=== PATIENT | male | born 1950 ===

== ENCOUNTER → 2021-10-23 08:16 | Outpatient (BNVA) | payer OTHER, SELFPAY | PROVIDERS: PCP Nurse Practitioner Primary Care; Referring Provider Nurse Practitioner Primary Care; Visit Provider Internal Medicine | DX: I10 Essential (primary) hypertension (principal) | CPT/HCPCS: 93005; 99212 ==

== ENCOUNTER → 2022-01-06 10:12 | Outpatient (REF) | payer OTHER, SELFPAY ==
--- NOTE | 2022-01-06 10:16 | CA_ITS ---
Transthoracic Echocardiogram Patient (Last, First, Middle): Favio Choe, Gender: Male Date of : 1950 Age: 71 Procedure Date: 01/06/2022 Procedure Type: Transthoracic Echocardiogram Location: OP Height: 162.56 cm Weight: 81.65 kg BSA: 1.87 m2 Heart Rate: bpm BP: 136 / 82 mmHg Java Development Manager: YOLA Referring MD: Abdi Platt MD Shank Cementer Hand: Marc Ramirez MD Symptoms: I10 - Essential (primary) hypertension Study Quality: Fair ECG Rhythm: Sinus Conclusions: - 1. Normal LV systolic function with impaired relaxation filling pattern 2. Normal cardiac valvular Doppler 3. No gross pericardial effusion Findings Left Ventricle Normal left ventricular size, thickness, and systolic function. The visually estimated ejection fraction is between 55-60%. Spectral Doppler is indicative of an impaired relaxation filling pattern. Right Ventricle Normal right ventricular cavity size and systolic function. Atria The left atrium is likely dilated. Interatrial shunt cannot be excluded. The right atrium is normal in size. Aortic Valve The aortic valve structure and function is likely normal. There is no aortic valve stenosis. There is no aortic valve regurgitation. Mitral Valve Normal mitral valve structure and function. There is trace mitral valve regurgitation. There is no mitral valve stenosis. Pulmonic Valve The pulmonic valve was not well visualized. Tricuspid Valve Likely normal tricuspid valve structure and function. Tricuspid regurgitation envelope is inadequate for calculation of right ventricular systolic pressure. Great Vessels All visible segments of the aorta are normal in size. The pulmonary artery was not well visualized. Venous The inferior vena cava is normal in size and collapses greater than 50% with inspiration. Pericardium/Pleural There is no evidence of pericardial effusion. Prior Study Comparison No prior study available for comparison. Measurements 2D Linear Measurements IVSd: 0.99 0.6-0.9/0.6-1.0 cm LVIDd: 4.76 3.9-5.3/4.2-5.9 cm LVIDd Index: 2.55 2.4-3.2/2.2-3.1 cm/m2 LVIDs: 2.92 2.0-3.6 cm LVPWd: 0.94 0.7-1.1 cm LA Diam: 3.90 2.7-3.8/3.0-4.0 cm LAIDs Index: 2.09 1.5-2.3 cm/m2 LV Mass: 199.37 67-162/88-224 g LV Mass Index: 106.62 43-95/49-115 g/m2 LVOT Diam: 2.00 3.0+(-)1.3 cm 2D Systolic Function EF 4C: 56.90 >55% EF 2C: 57.30 >55% EF BiP: 56.20 >55% Mitral Valve MV Pk E: 0.70 MV PK A: 0.88 MV Decel Time: 210.00 E/A: 0.80 E'Lateral: 10.40 E'Medial: 7.72 E/E' Med: 9.10 E/E' Lat: 6.80 PHT: 61.00 MVA PHT: 3.61 Decel Barrow: 3.36 Aortic Valve AoV Pk Renzo: 1.60 AoV Mn Renzo: 1.04 AoV VTI: 0.32 AoV Pk Grad: 10.00 Aov Mn Grad: 5.00 JESSE Cont.VTI: 2.20 LVOT LVOT Pk Renzo: 1.15 LVOT Mn Renzo: 0.72 LVOT VTI: 0.22 LVOT Pk Grad: 5.00 LVOT Mn Grad: 2.00 LVOT Diam: 2.00 LVOT Area: 3.14 Diastolic Function MV Pk E: 0.70 MV Pk A: 0.88 E/A: 0.80 E'Medial: 7.72 E/E' Med: 9.10 E' Laterial: 10.40 E/E' Lat: 6.80 Right Ventricle TAPSE (mm): 24.30 TVS' Renzo: 13.30 Tricuspid Valve RA Press: 3.00 Great Vessels Aorta Sinus of Valsalva: 3.15 2.0-3.[address] Ridge: 2.66 1.7-3.4 cm Ao Asc: 3.20 2.1-3.4 cm Ao Arch: 2.90 Updated in Other Vendor System with Status of Final Marc Ramirez MD electronically signed on 01/07/2022 5:24:23 PM with status of Final
== END ==
LOC: HO.CARD 10:12
PROVIDERS: PCP Nurse Practitioner Primary Care; Visit Provider Internal Medicine
DX: I10 Essential (primary) hypertension (principal)
CPT/HCPCS: 93306

== ENCOUNTER 2022-01-09 07:56 | Outpatient (REF) | payer OTHER, SELFPAY ==
--- NOTE | ~2022-01-09 | US_ITS ---
EXAMINATION: US RETROPERITONEAL LIMITED (RENAL ONLY) The renal Doppler exam report from the same day .
--- NOTE | ~2022-01-09 | US_ITS ---
EXAMINATION: US RENAL WITH DOPPLER, BILATERAL CLINICAL INFORMATION: Hypertension. COMPARISON: Previous abdominal ultrasound August 2018 . TECHNIQUE: Grayscale and color imaging of the kidneys including waveform spectral analysis of the renal arteries. FINDINGS: The kidneys are normal in contour and symmetric in size with the right kidney measuring 12 x 5.8 x 6.8 cm and the left kidney measuring 12.3 x 6.6 x 5.8 cm. Renal cortical thickness and echogenicity is normal. No renal stone, mass or hydronephrosis is seen. There is a 1.2 cm simple cyst exophytic to the lateral mid pole. The visualized aorta is normal in caliber. Mid-aortic peak systolic velocity measures 90 cm/s. The right renal artery is patent. Renal artery peak systolic velocities measure 93, 79 and 98 cm/s proximally, in the midportion and distally. Right renal bbjjro-bv-vxicb ratio measures 1.1. Resistive indices of the segmental renal arteries is upper normal measuring 0.7-0.8. The left renal artery is patent. Left renal artery peak systolic velocities measure 168, 83 and 105 cm/s proximally, in the midportion and distally. Left renal krhbtb-as-wdjqj ratio is normal measuring 0.9. Resistive indices of the segmental renal arteries in the left kidney are upper normal measuring 0.7-0.8. The bilateral renal veins are patent. US/US renal doppler IMPRESSION: Small left renal cyst. Otherwise normal renal ultrasound. Normal renal Doppler exam.
== END 2022-01-09 07:57 | disposition home or self-care (01) ==
LOC: HO.US 07:56
PROVIDERS: Visit Provider Internal Medicine
DX: I70.1 Atherosclerosis of renal artery (principal); I10 Essential (primary) hypertension
CPT/HCPCS: 76775; 93975

== ENCOUNTER → 2022-01-13 08:04 | Outpatient (BNVA) | payer OTHER, SELFPAY | PROVIDERS: PCP Nurse Practitioner Primary Care; Referring Provider Nurse Practitioner Primary Care; Visit Provider Internal Medicine | DX: I10 Essential (primary) hypertension (principal) | CPT/HCPCS: 99212 ==

== ENCOUNTER 2023-08-11 08:43 | Outpatient (AMB) | payer OTHER, SELFPAY ==
--- NOTE | 2023-08-11 08:45 | A.OFFPC_ITS ---
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 Request PE Microbiology Soil Scientist Required: No Accompanied by: Self / Same As Patient Allergies No Known Allergies [No Known Allergies*] Allergy (Verified 08/11/23 09:00) Medication List - Last Reconciled 08/11/23 by Nano Last MD aspirin 81 mg PO QPM atorvastatin 40 mg PO BEDTIME B-complex with vitamin C 1 tab PO QAM carvedilol 25 mg PO BID dulaglutide (Trulicity) mg subcut QWEEK hydrochlorothiazide 25 mg PO QAM lisinopril 40 mg PO QAM metformin ER 500 mg PO cxrwdxtjqbqj-bccg-oigfk acid 18-400 mg-mcg (Certavite-Antioxidant) 1 tab PO QAM nifedipine ER 30 mg PO QPM pioglitazone 15 mg PO QAM trazodone 50 mg PO BEDTIME vit B1 [id number]-C-FA 66-95-26-5-250 mg (B Complex w-Vit C) 1 tab PO QAM Tobacco use date assessed: 08/11/23 Fall risk assessment: No Falls in past year Last assessed Fall Risk: 08/11/23 Dental Screening Dental Screen Date: 08/11/23 Did you have a dental visit in the last 12 months?: No Did you have a dental problem in the last 6 months where you did not have access to dental care?: No HPI HPI Comments History of Present Illness Details This is a 72-year-old male with diabetes mellitus type 2, hypertension, hyperlipidemia and macrocytic anemia that comes today to establish care. Last colonoscopy was 2018 showing hyperplastic polyp and next colonoscopy should be 2028. A1c within goal. Blood pressure stable. Lipid panel will be order and his LDL goal should be less than 70. Has microcytic anemia and CBC will be repeated as well as vitamin B12 and folate levels will be checked. He drinks alcohol few times a week 3-4 beers every time he drinks and was advised to cut down on his drinking. He has been drinking alcohol since he has 18 years old and used to drink a lot more. He is a former smoker and ultrasound of the abdomen will be ordered to rule out abdominal aortic aneurysm. [facility] Medical History (Updated 08/11/23 @ 09:14 by Nano Last MD) Uncontrolled hypertension Surgical History No pertinent past surgical history Family History Father Hypertension Mother Hypertension Social History (Updated 08/11/23 @ 09:06 by Nano Last MD) Alcohol intake: current Alcohol intake frequency: a few times a week Alcohol type: beer Patient Tobacco Use Status: Former Tobacco user Tobacco use type: Cigarette Substance Use Type: Marijuana Cognitive needs: No Hearing needs: No Vision needs: No Questionnaire PHQ-9 Over the last 2 weeks, how often have you been bothered by any of the following problems? 1. Little interest or pleasure in doing things: not at all 2. Feeling down, depressed, or hopeless: not at all 3. Trouble falling or staying asleep, or sleeping too much: not at all 4. Feeling tired or having little energy: not at all 5. Poor appetite or overeating: not at all 6. Feeling bad about yourself - or that you are a failure or have let yourself or your family down: not at all 7. Trouble concentrating on things, such as reading the newspaper or watching television: not at all 8. Moving or speaking so slowly that other people could have noticed. Or the opposite - being so fidgety or restless that you have been moving around a lot more than usual: not at all 9. Thoughts that you would be better off or of hurting yourself in some way: not at all Total score: 0 Depression Screening Interpretation: Negative Depression Screening Done: Yes 22252 - PHQ-9 Billing: Yes Source: Developed by Drs. Corey Hdez, Janet Burnham, Domo Smith and colleagues, with an educational richard from [employer]. AUDIT C Alcohol Use Questionnaire (AUDIT-C) 1. How often do you have a drink containing alcohol?: 2-3 times a week 2. How many drinks containing alcohol do you have on a typical day when you are drinking?: 3 or 4 3. How often do you have six or more drinks on one occasion?: Never Total Score: 4 Score Reviewed/Action Taken: Yes LUISA-7 AMB Questionnaire LUISA-7 Date LUISA - 7 assessed: 08/11/23 Feeling nervous, anxious, or on edge: 0 = Not at all Not being able to stop or control worryin = Not at all Worrying too much about different things: 0 = Not at all Trouble relaxin = Not at all Being so restless that it is hard to sit still: 0 = Not at all Becoming easily annoyed or irritable: 0 = Not at all Feeling afraid as if something awful might happen: 0 = Not at all Total LUISA-7 score (0-4 normal; 5-9 mild; 10-14 moderate; 15-21 severe): 0 Source: Developed by Drs. Corey dHez, Janet Burnham, Domo Smith and colleagues, with an educational richard from [employer]. LUISA-7 Assessment Billing LUISA-7 Assessment Tool: LUISA-7 Assessment 54851 Review of Systems Const All systems reviewed & are unremarkable except as noted in HPI and below Eyes Reports no additional complaints, Denies change in vision and Denies other visual disturbances Card Denies chest pain at rest, Denies chest pain with activity, Denies edema, Denies irregular heart rhythm, Denies claudication, Denies dyspnea, Denies dyspnea on exertion, Denies orthopnea, Denies paroxysmal nocturnal dyspnea and Denies slow heart rate Resp Denies cough, Denies dyspnea and Denies dyspnea on exertion GI Denies abdominal pain, Denies change in bowel habits, Denies excessive flatus, Denies nausea and Denies vomiting Denies urinary hesitancy, Denies urinary incontinence and Denies urinary urgency Musc Denies abnormal gait, Denies atrophy, Denies deformity and Denies limited range of motion Skin/Breast Denies bleeding lesions, Denies changing lesions and Denies rash Neuro Denies abnormal gait, Denies behavioral changes and Denies lack of coordination Psych Denies behavioral changes Physical exam (Primary Care) Vital Signs: Last Vital Signs Pulse 78 08/11/23 08:46 BP 142/78 H 08/11/23 08:46 Pulse Ox 99 08/11/23 08:46 Oxygen Delivery Method Room Air 08/11/23 08:46 BMI result Body Mass Index 30.0 Tobacco/Smoking Status: Tobacco use Status Tobacco use date assessed 08/11/23 08/11/23 08:55 Patient Tobacco Use Status Former Tobacco user 08/11/23 09:06 Tobacco use type Cigarette 08/11/23 09:06 PHQ-9: PHQ-9 Score PHQ-9: Total score 0 08/11/23 09:07 Depression Screening Interpretation: Negative Eyes General: appearance normal, both eyes and all related structures Eyelids: Yes eyelids normal Conjunctivae: conjunctivae normal Neck Neck: Yes normal visual inspection and Yes supple Resp Effort & Inspection: normal respiratory effort Auscultation: clear to auscultation bilaterally Cardio Jugular venous distension: no JVD Rate: regular rate Rhythm: regular rhythm Heart sounds: S1 normal heart sound present and S2 normal heart sound present Extrem General: Yes full ROM Office Procedures Flu Questionnaire Does the patient have a severe egg allergy?: No Does the patient have severe life threatening allergies?: No Does the patient have a fever or illness today?: No Has the patient ever had Guillain-[place] Syndrome?: No Has the patient ever had any past reaction to a flu shot?: No Results AMB Hemoglobin A1c AMB Hemoglobin A1c 5.7 % Last Edit by PENELOPE Clemens on 08/11/23 08:57 Immunizations flu vacc [id number] 6mos up(PF) 60 mcg(15 mcgx4)/0.5 mL IM syringe Performing Provider: Nano Last MD Performing Location: [facility] Administered by: PENELOPE Clemens on 08/11/23 09:10 Dose Route Admin Location Dispensed Lot Number Expiration Date NDC Squirrel Man 0.5 mL IM Left Deltoid 0.5 mL [id number] 04/02/25 [id number] [employer] VIS Given Date VIS Provided VIS Publication Date 08/11/23 Single Vaccine 21 Eligibility Eligibility Date Funding Source Not [facility] Eligible 08/11/23 Private Results Reviewed Results Reviewed: Laboratory Last Values Hgb A1c (Clinic) 5.7 % (4.0-6.0) 08/11/23 08:46 Assessment and Plan Assessment & Plan (1) Diabetes mellitus: Code(s): E11.9 - Type 2 diabetes mellitus without complications Plan: Continue metformin and Trulicity. A1c goal is equal or less than 7%. Continue Actos. (2) Essential hypertension: Code(s): I10 - Essential (primary) hypertension Plan: Continue lisinopril and carvedilol. Blood pressure goal is equal or less than 130/80. (3) Hyperlipidemia LDL goal <70: Code(s): E78.5 - Hyperlipidemia, unspecified Plan: Continue statins. Repeat lipid panel. LDL goal is less than 70. (4) Macrocytic anemia: Code(s): D53.9 - Nutritional anemia, unspecified Plan: Repeat CBC. Orders: Orders Microalbumin, Random (w Creat) Today E11.9 - Type 2 diabetes mellitus without complications IRON PROFILE Today D64.9 - Anemia, unspecified AMB Hemoglobin A1c Today Z13.9 - Encounter for screening, unspecified Influenza [id number] Immunization Today Z23 - Encounter for immunization Lipid Panel Today E78.5 - Hyperlipidemia, unspecified Complete Blood Count Auto Diff Today D64.9 - Anemia, unspecified Vitamin B12 and Folate Today E53.8 - Deficiency of other specified B group vitamins Comprehensive [place]. Panel Fast Today E11.9 - Type 2 diabetes mellitus without complications abdominal aortic aneurysm Today Z87.891 - Personal history of nicotine dependence Coding Level of Care Code New Pt Level 4 (29945) Diagnoses Diabetes mellitus E11.9 Essential hypertension I10 Hyperlipidemia LDL goal <70 E78.5 Macrocytic anemia D53.9 Additional Codes LUISA-7 Assessment Billing - LUISA-7 Assessment Tool: LUISA-7 Assessment 69301 ([id number]) Time Spent (min) 24
[2023-08-11 08:46] VITALS: BP 142/78; PULSE 78; O2SAT 99
== END 2023-08-11 09:17 | disposition home or self-care (01) ==
PROVIDERS: PCP Internal Medicine; Visit Provider Internal Medicine
DX: E11.9 Type 2 diabetes mellitus without complications (principal); I10 Essential (primary) hypertension; E78.5 Hyperlipidemia, unspecified; D53.9 Nutritional anemia, unspecified; Z23 Encounter for immunization
CPT/HCPCS: 83036; 90471; 90686; 99204

== ENCOUNTER 2023-08-11 09:33 | Outpatient (REF) | payer OTHER, SELFPAY ==
[2023-08-11 10:19] LABS: Hemoglobin 12.6 g/dl (14.0-18.0); Mean Corpuscular Hemoglobin 34.6 pg (27.0-33.0); Mean Corpuscular Volume 98.9 fL (80.0-98.0); Mean Platelet Volume 10.5 fL (9.4-12.4); Platelet Count 189 X10*3/uL (160-400); Red Blood Count 3.64 X10*6/uL (4.60-5.80); Red Cell Distribution Width 13.5 % (11.0-16.0); White Blood Count 4.9 X10*3/uL (4.8-10.8)
[2023-08-11 10:44] LABS: Alanine Aminotransferase 21 U/L (0-40); Albumin Level 4.2 g/dL (3.5-5.0); Alkaline Phosphatase 108 U/L (39-117); Anion Gap 13 (12-20); Aspartate Amino Transferase 29 U/L (5-37); Bilirubin Total 0.5 mg/dL (0.0-1.0); Blood Urea Nitrogen 13 mg/dL (9-16); Calcium 10.2 mg/dL (8.4-10.2); Carbon Dioxide 27 mmol/L (22-29); Chloride 100 mmol/L (96-108); Cholesterol 159 mg/dL (<200); Estimated Glomerular Filt Rate > 60; Glucose Fasting 160 mg/dL (60-99); HDL Cholesterol 62 mg/dL (>40); Iron 58 mcg/dL (45-160); LDL Cholesterol Calculated 86 mg/dL (<100); Percent Iron Saturation 18 % (15-50); Potassium 4.3 mmol/L (3.3-5.1); Sodium 136 mmol/L (135-145); Total Iron Binding Capacity 323 mcg/dL (228-428); Total Protein 8.3 g/dL (6.5-8.0); Triglycerides 56 mg/dL (<150); Unsaturated Iron Binding 265 ug/dL
[2023-08-11 10:49] LABS: Creatinine Urine 59.39 mg/dL; Microalbum/Creatinine Ratio Ur 616.2 ug/mg cr (<30)
[2023-08-11 10:52] LABS: Band Neutrophils Percent 3 % (3-5); Eosinophils Absolute Manual 0.1 X10*3/uL (0.0-0.4); Eosinophils Percent Manual 2 % (0-4); Lymphocytes Absolute Manual 1.3 X10*3/uL (1.2-4.9); Lymphocytes Percent Manual 27 % (20-40); Monocytes Absolute Manual 0.6 X10*3/uL (0.1-1.2); Monocytes Percent Manual 12 % (2-11); Neutrophils Absolute Manual 2.9 X10*3/uL (2.0-8.3); Neutrophils Percent Manual 56 % (45-73)
[2023-08-11 10:53] LABS: Platelet Estimate NORMAL (NORMAL); Platelet Morphology Comment NORMAL; RBC Morphology NORMAL
[2023-08-11 11:19] LABS: Vitamin B12 512 pg/mL (200-900)
== END 2023-08-11 09:34 | disposition home or self-care (01) ==
LOC: HO.LAB 09:33
PROVIDERS: PCP Internal Medicine; Visit Provider Internal Medicine
DX: D64.9 Anemia, unspecified (principal); E53.8 Deficiency of other specified B group vitamins; E11.9 Type 2 diabetes mellitus without complications; E78.5 Hyperlipidemia, unspecified
CPT/HCPCS: 36415; 80053; 80061; 82043; 82570; 82607; 82746; 83540; 85007; 85025; 85027

== ENCOUNTER 2023-09-17 08:50 | Outpatient (REF) | payer OTHER, SELFPAY ==
--- NOTE | ~2023-09-17 | US_ITS ---
EXAMINATION: US RETROPERITONEAL LIMITED (AORTA) CLINICAL INFORMATION: Personal history of nicotine dependence. COMPARISON: None available. TECHNIQUE: Coleman-scale, color Doppler and spectral Doppler evaluation of the abdominal aorta. FINDINGS: The aorta is atherosclerotic. The measurements of the aorta in maximum AP and transverse dimensions respectively are as follows: Proximal: 3.0 x 2.7 cm. Mid: 1.9 x 1.7 cm. Distal: 1.7 x 1.5 cm. PSV: 76.4 cm/s. The measurements of the common iliac arteries in maximum AP and TRV dimensions are as follows: Right Common Iliac Artery: 1.3 x 1.1 cm. Left Common Iliac Artery: 1.6 x 1.3 cm. US/US abdominal aortic aneurysm IMPRESSION: Negative for abdominal aortic aneurysm.
== END 2023-09-17 08:51 | disposition home or self-care (01) ==
LOC: HO.US 08:50
PROVIDERS: PCP Internal Medicine; Visit Provider Internal Medicine
DX: Z13.6 Encounter for screening for cardiovascular disorders (principal); Z87.891 Personal history of nicotine dependence
CPT/HCPCS: 76706

== ENCOUNTER 2024-10-05 08:18 | Outpatient (AMB) | payer MEDICARE, SELFPAY ==
--- NOTE | 2024-10-05 08:24 | MHC.PC.OV ---
Vital Signs 10/05/24 08:26 Height 5 ft 4 in Weight 168 lb 2 oz BMI 28.9 BP 150/90 H Blood Pressure Location Lt brachial Position Sitting Pulse 70 Pulse Source Pulse Oximeter Pulse Oximetry (%) 98 Oxygen Delivery Method Room Air Intake Visit Reasons: Annual PE Intake Note: Patient is here today for a physical. 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 Accompanied by: Self / Same As Patient Allergies No Known Allergies [No Known Allergies*] Allergy (Verified 10/05/24 08:37) Medication List - Last Reconciled 10/05/24 by Nano Last MD aspirin 81 mg PO QPM 90 days atorvastatin 40 mg PO BEDTIME 90 days B-complex with vitamin C 1 tab PO QAM carvedilol 25 mg PO BID dulaglutide (Trulicity) 1.5 mg (0.5 mL) subcut QWEEK 90 days hydrochlorothiazide 25 mg PO QAM 90 days lisinopril 40 mg PO QAM 90 days metformin ER 500 mg PO BID 90 days elnxcvlxaiku-mtqw-dwbcp acid 18-400 mg-mcg (Certavite-Antioxidant) 1 tab PO QAM 90 days nifedipine ER 30 mg PO QPM 90 days pioglitazone 15 mg PO QAM 90 days trazodone 50 mg PO BEDTIME 90 days vit B1 fl-W2-W4-F6-I2-U15-C-FA 17-44-04-5-250 mg (B Complex w-Vit C) 1 tab PO QAM 90 days Tobacco use date assessed: 10/05/24 Fall risk assessment: No Falls in past year Last assessed Fall Risk: 10/05/24 Dental Screening Dental Screen Date: 10/05/24 Did you have a dental visit in the last 12 months?: No Did you have a dental problem in the last 6 months where you did not have access to dental care?: No Was dental information given to patient?: Patient declined HPI HPI Comments History of Present Illness Details This is a 73-year-old male that comes for his physical exam. He has chronic medical conditions, including Type 2 Diabetes Mellitus, Hyperlipidemia, and Hypertension. His diabetes management has been ongoing, and he is not currently on Metformin, contrary to previous prescriptions. However, his glycemic control appears satisfactory, with a recent HbA1c of 5.7%. His lipid levels require monitoring, and he expresses concerns regarding the use of statin medication due to potential side effects, particularly those affecting cardiac health. The patient also reports a history of colon polyps, removed during a colonoscopy in 2019, with a follow-up colonoscopy recommended for 2023. He mentions experiencing anxiety, especially related to medical appointments. The patient's hypertension is actively managed, but adjustments in his medication regimen are under consideration. He takes Nifedipine, advised to be taken in the morning to better manage blood pressure levels, which was noted to remain elevated. His social history includes former smoking and alcohol consumption limited to beer, with recommendations to reduce alcohol intake. There is a family history of hypertension. - Colonoscopy performed in 2019 with polyp removal; next recommended in 2023. - Vaccination for pneumonia was overdue as discussed, with plans to receive it shortly. - Regular monitoring of blood pressure and lipid levels emphasized. - Discussion regarding reduction of alcohol consumption to mitigate cardiovascular risk. -Since he is a former smoker abdominal aortic ultrasound was done to rule out abdominal aortic aneurysm and it was negative. [facility] Medical History Uncontrolled hypertension Surgical History No pertinent past surgical history Family History Father Hypertension Mother Hypertension Social History (Updated 10/05/24 @ 08:46 by Nano Last MD) Housing: House Alcohol intake: current Alcohol intake frequency: 3 or more drinks per day Alcohol type: beer Patient Tobacco Use Status: Former Tobacco user Tobacco use type: Cigarette e-Cigarette/Vaping Use: Never Used Substance Use Type: Marijuana service: No Current occupational status: retired Cognitive needs: No Hearing needs: No Vision needs: No Questionnaire PHQ-9 Over the last 2 weeks, how often have you been bothered by any of the following problems? 1. Little interest or pleasure in doing things: not at all 2. Feeling down, depressed, or hopeless: not at all 3. Trouble falling or staying asleep, or sleeping too much: not at all 4. Feeling tired or having little energy: not at all 5. Poor appetite or overeating: not at all 6. Feeling bad about yourself - or that you are a failure or have let yourself or your family down: not at all 7. Trouble concentrating on things, such as reading the newspaper or watching television: not at all 8. Moving or speaking so slowly that other people could have noticed. Or the opposite - being so fidgety or restless that you have been moving around a lot more than usual: not at all 9. Thoughts that you would be better off or of hurting yourself in some way: not at all Total score: 0 Depression Screening Interpretation: Negative Depression Screening Done: Yes 69572 - PHQ-9 Billing: Yes Source: Developed by Drs. Corey Hdez, Janet Burnham, Domo Smith and colleagues, with an educational richard from [employer] Thrive Questionnaire Date Thrive assessed: 10/05/24 I am a: Patient What is your living situation today?: I have a steady place to live Within the past 12 months, did the food you bought not last and you didn't have the money to get more?: Never true Within the past 12 months, did you worry whether your food would run out before you got money to buy more?: Never true Do you have trouble paying for medicines?: No Do you have trouble getting transportation to medical appointments?: No Do you have trouble paying your heating and electricity bill?: No Do you have trouble taking care of your child, family member or friend?: No Do you have trouble with day-to-day activities such as bathing, preparing meals, shopping, managing finances, etc.?: No Are you currently unemployed and looking for a job?: No Are you interested in more education?: No Please select the resources that you would like help with: None Currently or been in a relationship where the following occur: No concerns reported THRIVE Score: 0 AUDIT C Alcohol Use Questionnaire (AUDIT-C) 1. How often do you have a drink containing alcohol?: 4 or more times a week 2. How many drinks containing alcohol do you have on a typical day when you are drinking?: 3 or 4 3. How often do you have six or more drinks on one occasion?: Less than monthly Total Score: 6 LUISA-7 AMB Questionnaire LUISA-7 Date LUISA - 7 assessed: 10/05/24 Feeling nervous, anxious, or on edge: 0 = Not at all Not being able to stop or control worryin = Not at all Worrying too much about different things: 0 = Not at all Trouble relaxin = Not at all Being so restless that it is hard to sit still: 0 = Not at all Becoming easily annoyed or irritable: 0 = Not at all Feeling afraid as if something awful might happen: 0 = Not at all Total LUISA-7 score (0-4 normal; 5-9 mild; 10-14 moderate; 15-21 severe): 0 Source: Developed by Drs. Corey Hdez, Janet Burnham, Domo Smith and colleagues, with an educational richard from [employer] LUISA-7 Assessment Billing LUISA-7 Assessment Tool: LUISA-7 Assessment 07420 Review of Systems Const Details: - Cardiovascular: Reports elevated blood pressure. Physical exam (Primary Care) Vital Signs: Last Vital Signs Pulse 70 10/05/24 08:26 BP 150/90 H 10/05/24 08:26 Pulse Ox 98 10/05/24 08:26 Oxygen Delivery Method Room Air 10/05/24 08:26 BMI result Body Mass Index 28.9 Tobacco/Smoking Status: Tobacco use Status Tobacco use date assessed 10/05/24 10/05/24 08:35 Patient Tobacco Use Status Former Tobacco user 10/05/24 08:46 Tobacco use type Cigarette 10/05/24 08:46 e-Cigarette/Vaping Use Never Used 10/05/24 08:46 PHQ-9: PHQ-9 Score PHQ-9: Total score 0 10/05/24 08:42 Depression Screening Interpretation: Negative Thrive Assessment: Date of Thrive Assessment Date Thrive assessed 10/05/24 10/05/24 08:26 Currently or been in a relationship where the following occur: No concerns reported Const Other: General: Cooperative, healthy appearing, comfortable, no acute distress and well developed Orientation: Patient oriented x3 Limitations: No limitations Head: Normal to inspection Ears: Hearing grossly normal bilaterally Nose: Normal external nose present Face and sinus: Normal facial exam Eyes: Appearance normal, both eyes and all related structures Neck: Normal visual inspection and Yes full ROM Respiratory: Normal respiratory effort and able to speak in complete sentences. Clear to auscultation bilaterally Cardiovascular: Regular rate and rhythm. Normal S1 and S2 GI: Normal to inspection. Soft to palpation and nontender Skin: No rashes or lesions noted Neuro: Patient oriented x3 Extremities: Normal to inspection Office Procedures Flu Questionnaire Does the patient have a severe egg allergy?: No Does the patient have severe life threatening allergies?: No Does the patient have a fever or illness today?: No Has the patient ever had Guillain-[place] Syndrome?: No Has the patient ever had any past reaction to a flu shot?: No Results AMB Hemoglobin A1c AMB Hemoglobin A1c 5.7 % Last Edit by CRISTINA Ocasio on 10/05/24 08:42 Immunizations Fluarix Triv [id number] (PF) 45 mcg (15 mcg x 3)/0.5 mL IM syringe Performing Provider: Nano Last MD Performing Location: [facility] Administered by: CRISTINA Ocasio on 10/05/24 08:42 Dose Route Admin Location Dispensed Lot Number Expiration Date NDC Hydraulic Elevator Constructor 0.5 mL IM Right Deltoid 0.5 mL [id number] 04/02/35 [id number] [employer] VIS Given Date VIS Provided VIS Publication Date 10/05/24 Single Vaccine 21 Eligibility Eligibility Date Funding Source Not VFC Eligible 10/05/24 Private pneumoc 20-ronal conj-dip cr(PF) 0.5 mL IM syringe Performing Provider: Nano Last MD Performing Location: [facility] [place] [facility] Administered by: CRISTINA Ocasio on 10/05/24 08:57 Dose Route Admin Location Dispensed Lot Number Expiration Date NDC Hydraulic Elevator Constructor 0.5 mL IM Left Deltoid 0.5 mL [id number] 01/02/26 [employer] VIS Given Date VIS Provided VIS Publication Date 10/05/24 Single Vaccine 21 Eligibility Eligibility Date Funding Source Not VFC Eligible 10/05/24 Private Results Reviewed Results Reviewed: Laboratory Last Values Hgb A1c (Clinic) 5.7 % (4.0-6.0) 10/05/24 08:21 Coding Level of Care Code Est Pt Prev Care >65y(13869) Diagnoses Physical exam Z00.00 Diabetes mellitus E11.9 Additional Codes LUISA-7 Assessment Billing - LUISA-7 Assessment Tool: LUISA-7 Assessment 88267 ([id number]) PHQ-9 - 95584 - PHQ-9 Billing: Yes ([id number]) Time Spent (min) 32 Assessment & Plan Assessment & Plan (1) Physical exam: Code(s): Z00.00 - Encounter for general adult medical examination without abnormal findings Category: Medical (2) Diabetes mellitus: Code(s): E11.9 - Type 2 diabetes mellitus without complications Category: Medical Plan - Continue monitoring Type 2 Diabetes Mellitus with periodic HbA1c checks; no current need for Metformin due to satisfactory control. - Hyperlipidemia management requires review of statin therapy; patient education and consent needed regarding potential side effects and cardiovascular benefits. - For hypertension, advise morning administration of Nifedipine to improve control; reassess blood pressure in three weeks. - Address anxiety associated with medical visits; consider behavioral strategies or pharmacotherapy if necessary. - Administer pneumococcal vaccination as part of health maintenance. Patient was informed and verbally consented to the use of an ambient scribe for clinic note documentation during this visit. I discussed with the patient the importance of maintaining control of his Type 2 Diabetes Mellitus, highlighting his current satisfactory glycemic levels. The risk and benefits of statin therapy were thoroughly reviewed to manage hyperlipidemia and reduce cardiovascular risk, emphasizing the necessity for LDL cholesterol to be below 70. We reviewed his antihypertensive regimen, suggesting he take Nifedipine in the morning alongside other medications to optimize blood pressure control. The patient was informed about alcohol reduction as a preventive measure, and we agreed on continued observation of his colon health, with a follow-up colonoscopy planned. Emphasis was placed on the need for pneumococcal vaccination, which was deferred previously. Orders: Orders Lipid Panel Today E78.5 - Hyperlipidemia, unspecified Influenza [id number] Immunization Today E11.9 - Type 2 diabetes mellitus without complications AMB Hemoglobin A1c Today E11.9 - Type 2 diabetes mellitus without complications Microalbumin, Random (w Creat) Today R80.9 - Proteinuria, unspecified Comprehensive [place]. Panel Fast Today E11.9 - Type 2 diabetes mellitus without complications Referrals Open Access Screening Colonoscopy Referral Z12.12 - Encounter for screening for malignant neoplasm of rectum Medications: Discontinued pioglitazone Discontinued Reason: Patient Completed Course 15 mg PO QAM 90 days 90 tabs 0RF atorvastatin Discontinued Reason: Patient Refused 40 mg PO BEDTIME 90 days 90 tabs 1RF Patient Instructions: - Schedule and receive a pneumococcal vaccine. - Take Nifedipine in the morning for better blood pressure management. - Continue monitoring blood sugar levels; no change in diabetes medication currently. - Consider lifestyle modifications, including reducing alcohol consumption. - Return for a blood pressure reevaluation in three weeks. - Maintain routine colonoscopy follow-up as scheduled. - Contact for any concerns regarding medication side effects or anxiety management.
[2024-10-05 08:26] VITALS: BP 150/90; PULSE 70; O2SAT 98; BMI 28.9
== END 2024-10-05 09:05 | disposition home or self-care (01) ==
PROVIDERS: PCP Internal Medicine; Visit Provider Internal Medicine
DX: Z00.00 Encounter for general adult medical examination without abnormal findings (principal); E11.9 Type 2 diabetes mellitus without complications; Z23 Encounter for immunization

== ENCOUNTER → 2024-10-05 08:18 | Outpatient (BNVA) | payer MEDICARE, SELFPAY | PROVIDERS: PCP Internal Medicine; Visit Provider Internal Medicine | DX: Z00.00 Encounter for general adult medical examination without abnormal findings (principal); Z23 Encounter for immunization; E11.9 Type 2 diabetes mellitus without complications | CPT/HCPCS: 83036; 90471; 90656; 90677; 96127; 99212 ==

== ENCOUNTER → 2024-10-19 09:39 | Outpatient (BNVA) | payer MEDICARE, SELFPAY | PROVIDERS: PCP Internal Medicine ==

== ENCOUNTER → 2024-10-26 15:00 | Outpatient (BNVA) | payer MEDICARE, SELFPAY | PROVIDERS: PCP Internal Medicine ==

== ENCOUNTER 2025-02-14 09:35 | Outpatient (AMB) | payer OTHER, MEDICARE, SELFPAY ==
--- NOTE | 2025-02-14 09:40 | MHC.PC.OV ---
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 by: Self / Same As Patient Allergies No Known Allergies [No Known Allergies*] Allergy (Verified 02/14/25 10:07) Medication List - Last Reconciled 02/14/25 by Nnao Last MD aspirin 81 mg PO QPM 90 days carvedilol 25 mg PO BID dulaglutide (Trulicity) 1.5 mg (0.5 mL) subcut QWEEK 90 days hydrochlorothiazide 25 mg PO QAM 90 days lisinopril 40 mg PO QAM 90 days metformin ER 500 mg PO BID 90 days cxqvetfsibje-kxst-fuije acid 18-400 mg-mcg (Certavite-Antioxidant) 1 tab PO QAM 90 days nifedipine ER 30 mg PO QPM 90 days trazodone 50 mg PO BEDTIME 90 days vit B1 do-L2-S4-I4-U2-X04-C-FA 89-55-62-5-250 mg (B Complex w-Vit C) 1 tab PO QAM 90 days Tobacco use date assessed: 10/05/24 Fall risk assessment: No Falls in past year Last assessed Fall Risk: 02/14/25 Dental Screening Dental Screen Date: 10/05/24 HPI HPI Comments History of Present Illness Details The patient is a 74-year-old male presenting with a follow-up on chronic conditions, specifically Type 2 Diabetes Mellitus, Essential Hypertension, and anemia. His diabetes is under good control with a Hemoglobin A1c of 5.8%. There is a history of anemia, and laboratory tests are anticipated to address this. The patient has Essential Hypertension and a history of insomnia for which he takes trazodone 50 mg. Although he sleeps more than 8 hours, he mentions a dislike for prolonged sleep. His Essential Hypertension appears stable with recent readings within normal range. The last cardiology assessment in 2021 was unremarkable with a normal ejection fraction. The patient acknowledges changes in his Medicare which has impacted his laboratory testing. [facility] Medical History (Updated 10/05/24 @ 09:01 by Nano Last MD) Uncontrolled hypertension Surgical History No pertinent past surgical history Family History Father Hypertension Mother Hypertension Social History Housing: House Alcohol intake: current Alcohol intake frequency: 3 or more drinks per day Alcohol type: beer Patient Tobacco Use Status: Former Tobacco user Tobacco use type: Cigarette e-Cigarette/Vaping Use: Never Used Substance Use Type: Marijuana service: No Current occupational status: retired Cognitive needs: No Hearing needs: No Vision needs: No Questionnaire Thrive Questionnaire Date Thrive assessed: 10/05/24 I am a: Patient What is your living situation today?: I have a steady place to live Within the past 12 months, did the food you bought not last and you didn't have the money to get more?: Never true Within the past 12 months, did you worry whether your food would run out before you got money to buy more?: Never true Do you have trouble paying for medicines?: No Do you have trouble getting transportation to medical appointments?: No Do you have trouble paying your heating and electricity bill?: No Do you have trouble taking care of your child, family member or friend?: No Do you have trouble with day-to-day activities such as bathing, preparing meals, shopping, managing finances, etc.?: No Are you currently unemployed and looking for a job?: No Are you interested in more education?: No Please select the resources that you would like help with: None Currently or been in a relationship where the following occur: No concerns reported THRIVE Score: 0 LUISA-7 AMB Questionnaire LUISA-7 Date LUISA - 7 assessed: 10/05/24 Source: Developed by Drs. Corey Hdez, Janet Burnham, Domo Smith and colleagues, with an educational richard from [employer]. Review of Systems Const All systems reviewed & are unremarkable except as noted in HPI and below Card Denies chest pain at rest, Denies chest pain with activity, Denies edema, Denies irregular heart rhythm, Denies claudication, Denies dyspnea, Denies dyspnea on exertion, Denies orthopnea, Denies paroxysmal nocturnal dyspnea and Denies slow heart rate Resp Denies cough, Denies dyspnea and Denies dyspnea on exertion GI Denies abdominal pain, Denies change in bowel habits, Denies excessive flatus, Denies nausea and Denies vomiting Physical exam (Primary Care) Vital Signs: Last Vital Signs BP 128/82 02/14/25 09:41 BMI result Body Mass Index 28.3 Tobacco/Smoking Status: Tobacco use Status Tobacco use date assessed 10/05/24 02/14/25 09:49 Patient Tobacco Use Status Former Tobacco user 02/14/25 09:49 Tobacco use type Cigarette 02/14/25 09:49 e-Cigarette/Vaping Use Never Used 02/14/25 09:49 Thrive Assessment: Date of Thrive Assessment Date Thrive assessed 10/05/24 02/14/25 09:49 Currently or been in a relationship where the following occur: No concerns reported Resp Effort & Inspection: normal respiratory effort Auscultation: clear to auscultation bilaterally Cardio Jugular venous distension: no JVD Rate: regular rate Rhythm: regular rhythm Heart sounds: S1 normal heart sound present and S2 normal heart sound present Extrem General: Yes full ROM Results AMB Hemoglobin A1c AMB Hemoglobin A1c 5.8 % Last Edit by PENELOPE Ruvalcaba on 02/14/25 09:52 Results Reviewed Results Reviewed: Laboratory Last Values Hgb A1c (Clinic) 5.8 % (4.0-6.0) 02/14/25 09:39 Coding Level of Care Code Est Pt Level 4 (65923) Complex EM visit Add On G2211 Diagnoses Diabetes mellitus E11.9 Essential hypertension I10 Hyperlipidemia LDL goal <70 E78.5 Insomnia G47.00 Time Spent (min) 22 Assessment & Plan Assessment & Plan (1) Diabetes mellitus: Code(s): E11.9 - Type 2 diabetes mellitus without complications Category: Medical (2) Essential hypertension: Code(s): I10 - Essential (primary) hypertension Category: Medical (3) Hyperlipidemia LDL goal <70: Code(s): E78.5 - Hyperlipidemia, unspecified Category: Medical (4) Insomnia: Code(s): G47.00 - Insomnia, unspecified Category: Medical Plan Essential Hypertension management is ongoing with existing medications and appears stable. Laboratory follow-up to evaluate anemia further and address underlying causes is planned. The insomnia regimen with trazodone will be reviewed to optimize sleep patterns. No further cardiology follow-up is necessary at this point.: Patient was informed and verbally consented to the use of an ambient scribe for clinic note documentation during this visit. I informed the patient about his well-controlled diabetes and the stability of his blood pressure management, noting that current medication regimens are effective. For anemia, we discussed the need for further laboratory tests to monitor and manage hemoglobin levels and iron status comprehensively. The importance of continued monitoring and routine checks for chronic conditions like hypertension and diabetes was emphasized. We also addressed the management of insomnia with trazodone, and his current sleeping pattern and dosage will be assessed and adjusted as needed. The patient was advised to contact the billing department regarding his Medicare situation, which may affect laboratory testing. Orders: Orders IRON PROFILE Today D64.9 - Anemia, unspecified Lipid Panel Today E78.5 - Hyperlipidemia, unspecified Microalbumin, Random (w Creat) Today R80.9 - Proteinuria, unspecified Vitamin B12 and Folate Today E53.8 - Deficiency of other specified B group vitamins Comprehensive [place]. Panel Fast Today E11.9 - Type 2 diabetes mellitus without complications AMB Hemoglobin A1c Today E11.9 - Type 2 diabetes mellitus without complications Vitamin D 25-OH Total Today E55.9 - Vitamin D deficiency, unspecified Patient Instructions: - Continue all current medications as prescribed. - Follow up with laboratory tests for anemia as soon as possible. - Monitor blood pressure routinely at home. - Contact billing regarding Medicare changes affecting lab tests. - Discuss any concerns about trazodone or sleep patterns with me at the next visit. - Schedule a return visit for ongoing management as advised.
[2025-02-14 09:41] VITALS: BP 128/82; BMI 28.3
--- OUTSIDE RECORDS SUMMARY | 2025-02-14 10:15 | XMS_ITS | Encounter Summary ---
Author Organization [employer] Address [address] [place] [address] [address] [place] [address] Care Team Providers Care Marketing Producer Name Role Phone Caroline Flores Primary Care Provider [phone] Reason for Visit * Reason Comments Med Refill Encounter Details Date Type Department Care Team ([facility] st Contact Info) Description 02/14/2023 Refill [facility] MEDICINE [address] [place], [place] [id number] Name, MD [place] [address] [place] [address] Social History Tobacco Use Types Packs/Day Years Used Date Smoking Tobacco: Never Assessed Sex and Gender Information Value Date Recorded Sex Assigned at Male 08/03/2022 10:14 AM EDT Legal Sex Male 10:14 AM EDT Gender Identity Male 08/03/2022 10:14 AM EDT Sexual Orientation Straight 08/03/2022 10 :14 AM EDT documented as of this encounter Plan of Treatment Not on file documented as of this encounter Visit Diagnoses Not on filedocumented in this encounter Care Teams Marketing Producer Relationship Specialty Start Date End Date Caroline Flores ANP [address] [place], [place] [phone] PCP - General Family Medicine 06/03/20 06/17/23 documented as of this encounter
--- OUTSIDE RECORDS SUMMARY | 2025-02-14 10:16 | XMS_ITS | Encounter Summary ---
Author Organization [employer] Address [address] [place] [address] [address] [place] [address] Care Team Providers Care Furnace Fitter Name Role Phone Unavailable Primary Care Provider Unavailabl e Reason for Visit * Reason Comments Med Refill Encounter Details Date Type Department Care Team ([facility] st Contact Info) Description 08/24/2023 Refill [facility] MEDICINE [address] [place] [address] Caroline Flores ANP [address] [place] [address] Social History Tobacco Use Types Packs/Day Years [...]
--- OUTSIDE RECORDS SUMMARY | 2025-02-14 10:16 | XMS_ITS | Encounter Summary ---
Author Organization [employer] Address [address] [place] [address] [address] [place] [address] Care Team Providers Care Tetryl Screen Operator Name Role Phone Unavailable Primary Care Provider Unavailabl e Reason for Visit * Reason Comments Med Refill Encounter Details Date Type Department Care Team ([facility] st Contact Info) Description 06/20/2023 Refill [facility] MEDICINE [address] [place] [address] Caroline Flores ANP [address] [place] [address] Social History Tobacco Use Types Packs/Day Years [...]
--- OUTSIDE RECORDS SUMMARY | 2025-02-14 10:16 | XMS_ITS | Encounter Summary ---
Author Organization [employer] Address [address] [place] [address] 7t [place] [address] Care Team Providers Care Sandblast Or Shotblast Equipment Tender Name Role Phone Unavailable Primary Care Provider Unavailabl e Reason for Visit * Reason Comments Med Refill Encounter Details Date Type Department Care Team ([facility] st Contact Info) Description 08/16/2023 Refill [facility] MEDICINE 230 [place] [address] Caroline Flores ANP [address] [place] [address] Social History Tobacco Use Types Packs/Day Years [...]
--- OUTSIDE RECORDS SUMMARY | 2025-02-14 10:16 | XMS_ITS | Clinical Summary ---
Author Organization [employer] Address [address] [place] [address] 7t [place] [address] Care Team Providers Care Casting Machine Service Operator Name Role Phone Unavailable Primary Care Provider Unavailabl e Allergies No known active allergies Medications carvedilol (Coreg) 25 MG tablet Take 1 tablet by mouth every 12 (twelve) hours. Active glucose blood (FREESTYLE LITE) test strip 1 strip at bed time. 01/24/20 20 Active Trulicity 1.5 MG/0.5ML solution pen-injectorIndica tions:Type 2 diabetes mellitus without complication, unspecified whether termite treater helper insulin use ([facility]) INJECT ONE PEN (=1.5MG) SUBCUTANEOUSLY ONCE A WEEK DIRECTED 6 mL 3 12/10/19 23 Active pioglitazone (Actos) 15 MG tabletIndications: Type 2 diabetes mellitus with hyperlipidemia (CMS/HCC) ([facility]) TAKE 1 TABLET BY MOUTH EVERY MORNING 90 tablet 3 12/19/19 23 Active Aspirin Low Dose 81 MG EC tabletIndications: Type 2 diabetes mellitus with hyperlipidemia ([facility]/HCC) ([facility]) TAKE 1 TABLET BY MOUTH EVERY EVENING 90 tablet 3 12/19/19 23 Active Multiple Vitamins-Minerals (Centrum Adults) tablet TAKE 1 TABLET BY MOUTH EVERY MORNING 90 tablet 3 02/16/20 23 Active B Complex-C (b complex-vitamin c) tablet TAKE 1 TABLET BY MOUTH EVERY MORNING 90 tablet 04/23/20 23 Active hydroCHLOROthiazid e (HYDRODiuril) 25 MG tablet TAKE 1 TABLET BY MOUTH EVERY MORNING 90 tablet 04/23/20 23 Active atorvastatin (Lipitor) 40 MG tablet TAKE 1 TABLET BY MOUTH AT BEDTIME 90 tablet 04/23/20 23 Active lisinopril 40 MG tabletIndications: Hypertension associated with diabetes (CMS/[facility]) Take 1 tablet (40 mg) by mouth in the morning. 90 tablet 07/01/20 Active metFORMIN XR (Glucophage-XR) 500 MG 24 hr tabletIndications: Hypertension associated with diabetes (CMS/HCC) TAKE 1 TABLET BY MOUTH TWICE DAILY IN THE MORNING AND IN THE EVENING WITH FOOD 180 tablet 07/01/20 Active NIFEdipine XL (Procardia XL) 30 MG 24 hr tabletIndications: Hypertension associated with diabetes (CMS/HCC) Take 1 tablet (30 mg) by mouth Once daily. Do not crush, chew, or split. 90 tablet 07/01/20 23 Active traZODone (Desyrel) 50 MG tabletIndications: Depressive disorder Take 1 tablet (50 mg) by mouth at bedtime. 90 tablet 07/01/20 Active Active Problems Problem Noted Date Diagnosed Date Amblyopia of right eye 12/03/2018 Deficiency anemia 08/08/2014 Proteinuria 08/08/2014 Alcohol abuse 07/12/2013 Allergic rhinitis 03/24/2013 Depressive disorder 05/12/2012 Gout 05/12/2012 Hypercholesterolemia 05/12/2012 Hypertension 05/12/2012 Type 2 diabetes mellitus without complication Immunizations Immunization Administration Dates Next Due Hep A, Adult 08/24/2018,07/04/2009 Hep B, Adolescent or Pediatric 11/05/2009,2008 Hep B, adult 12/01/2005 Influenza High-dose Quadriva lent Preservative Free 07/03/2021 Influenza injectable quadriv alent IIV4 with preservative 08/24/2018 Influenza injectable quadriv alent preservative free 07/07/2017,12/10/2016 Influenza, High Dose Seasona l, Preservative Free 09/20/2019 Influenza, IIV3, injectable 08/17/2014, 1,07/04/2009 Influenza, Split (incl. dov fied surface antigen) 07/12/2013 Moderna Covid-19 Vaccine 12+ 10/08/2021,12/27/19 21,11/28/2020 Moderna Covid-19 Vaccine 6+ Bivalent 09/30/2022 Pneumococcal Conjugate PCV 13 09/20/2019 Pneumococcal Polysaccharide PPSV23 11/05/2009 TD (adult), 2 Lf tetanus tox oid, preservative free, adsorbed 07/03/2021 Tdap 11/05/2009 Zoster, live 12/10/2016 Social History Tobacco Use Types Packs/Day Years Used Date Smoking Tobacco: Never Assessed Sex and Gender Information Value Date Recorded Sex Assigned at Male 08/03/2022 10:14 AM EDT Legal Sex Male 10:14 AM EDT Gender Identity Male 08/03/2022 10:14 AM EDT Sexual Orientation Straight 08/03/2022 10 :14 AM EDT Last Filed Vital Signs Vital Sign Reading Time Taken Comments Blood Pressure 198/88 07/03/2021 12:09 AM EDT Pulse 70 07/03/2021 12:09 AM EDT Temperature - - Respiratory Rate - - Oxygen Saturation - - Inhaled Oxygen Concentration - - Weight 81.3 kg (179 lb 3.2 oz) 07/03/2021 12:09 AM EDT Height 162.6 cm (5' 4 ) 07/03/2021 12:09 AM EDT Body Mass Index 30.76 07/03/2021 12:09 AM EDT Plan of Treatment Health Maintenance Due Date Last Done Comments CT Colonography 1952 Colonoscopy 1952 Colorectal Cancer Screening 1952 Depression Screening 1952 Diabetes: Hemoglobin A1C 1952 FIT DNA/Cologuard 1952 FIT 1952 FOBT 1952 Lipid Panel 1952 SDOH Screening 1952 Sigmoidoscopy 1952 Diabetes: Foot Exam 1962 Eye Exam 1962 Alcohol/Substance Use Screening 1964 Tobacco Screening 1964 Hepatitis C Screening 1970 Diabetes: Urine Protein Screening 1971 Hepatitis B Vaccines (2 of 3 - 19+ 3-dose series) 12/03/2009 11/05/2009, 07/04/2009, 12/01/2005 Zoster Vaccines (2 of 3) 02/04/2017 12/10/2016 COVID-19 Vaccine ( - season) 2024 09/30/2022, 10/08/2021, 12/26/2020, Additional history exists Influenza Vaccine (#1) 2024 , 09/20/2019, 08/24/2018, Additional history exists Pneumococcal Vaccine: 50+ Years (3 of 3 - PCV20 or PCV21) 09/20/2024 09/20/2019, 11/05/2009 RSV Patients and Patients Aged 60 years or older (1 - 1-dose 75+ series) 2027 DTaP/Tdap/Td Vaccines (3 - Td or Tdap) 07/03/2031 07/03/2021, 11/05/2009 Hepatitis A Vaccines Aged Out 08/24/2018, 07/04/20 09 No longer eligible based on patient's age to complete this topic HIB Vaccines Aged Out No longer eligi ble based on patient's age to complete this topic HPV Vaccines Aged Out No longer eligi ble based on patient's age to complete this topic IPV Vaccines Aged Out No longer eligi ble based on patient's age to complete this topic Meningococcal Vaccine Aged Out No lisa elsa eligible based on patient's age to complete this topic RSV under 20 months Aged Out No longe r eligible based on patient's age to complete this topic Rotavirus Vaccines Aged Out No longer eligible based on patient's age to complete this topic Insurance [employer]
--- OUTSIDE RECORDS SUMMARY | 2025-02-14 10:16 | XMS_ITS | Encounter Summary ---
Author Organization [employer] Address [address] [place] [address] [address]t [place] [address] Care Team Providers Care Associate Designer Name Role Phone Unavailable Primary Care Provider Unavailabl e Reason for Visit * Reason Comments Med Refill Encounter Details Date Type Department Care Team ([facility] st Contact Info) Description 06/23/2023 Refill [facility] MEDICINE [address] [place] [address] Caroline Flores ANP 230 [place] [address] Social History Tobacco Use Types Packs/Day Years [...]
--- OUTSIDE RECORDS SUMMARY | 2025-02-14 10:16 | XMS_ITS | Encounter Summary ---
Author Organization [employer] Address [address] [place] [address] [address]t [place] [address] Care Team Providers Care Hyster Machine Operator Name Role Phone Unavailable Primary Care Provider Unavailabl e Reason for Visit * Reason Comments Med Refill Encounter Details Date Type Department Care Team ([facility] st Contact Info) Description 08/31/2023 Refill [facility] MEDICINE [address] [place] [address] Caroline Flores ANP [address] [place] [address] Social History Tobacco Use Types Packs/Day Years [...]
== END 2025-02-14 10:17 | disposition home or self-care (01) ==
PROVIDERS: PCP Internal Medicine; Visit Provider Internal Medicine
DX: E11.9 Type 2 diabetes mellitus without complications (principal); I10 Essential (primary) hypertension; E78.5 Hyperlipidemia, unspecified; G47.00 Insomnia, unspecified

== ENCOUNTER 2025-02-14 09:35 | Outpatient (REF) | payer MEDICARE, SELFPAY ==
[2025-02-14 11:16] LABS: Hematocrit 37.4 % (42.0-52.0); Mean Corpuscular HGB Conc 34.8 g/dl (31.0-36.0); Mean Corpuscular Hemoglobin 33.9 pg (27.0-33.0); Mean Corpuscular Volume 97.4 fL (80.0-98.0); Mean Platelet Volume 10.4 fL (9.4-12.4); Platelet Count 183 X10*3/uL (160-400); Red Blood Count 3.84 X10*6/uL (4.60-5.80); Red Cell Distribution Width 12.5 % (11.0-16.0); White Blood Count 5.3 X10*3/uL (4.8-10.8)
--- OUTSIDE RECORDS SUMMARY | 2025-02-14 11:28 | XMS_ITS | Encounter Summary ---
Author Organization [employer] Address [address] [place] [address] [address] [place] [address] Care Team Providers Care Business Services Tech Name Role Phone Caroline Flores Primary Care Provider [phone] Reason for Visit * Reason Comments Med Refill Encounter Details Date Type Department Care Team ([facility] st Contact Info) Description 02/14/2023 Refill [facility] MEDICINE 230 [place], [place] [phone] Name, MD Elmo [address] [place] [address] Social History Tobacco Use Types Packs/Day Years [...] on filedocumented in this encounter Care Teams Business Services Tech Relationship Specialty Start Date End Date Caroline Flores ANP [address] [place], [place] [phone] PCP - General Family Medicine 06/03/20 06/17/23 documented as of this encounter
--- OUTSIDE RECORDS SUMMARY | 2025-02-14 11:28 | XMS_ITS | Encounter Summary ---
Author Organization [employer] Address [address] [place] [address] [address]t [place] [address] Care Team Providers Care Applications Intern Name Role Phone Unavailable Primary Care Provider Unavailabl e Reason for Visit * Reason Comments Med Refill Encounter Details Date Type Department Care Team ([facility] st Contact Info) Description 06/23/2023 Refill [facility] MEDICINE 230 [place] [address] Caroline Flores ANP [address] [place] [address] Social History Tobacco Use Types Packs/Day Years [...]
--- OUTSIDE RECORDS SUMMARY | 2025-02-14 11:28 | XMS_ITS | Encounter Summary ---
Author Organization [employer] Address [address] [place] [address] [address]t [place] [address] Care Team Providers Care Online Marketing Director Name Role Phone Unavailable Primary Care Provider Unavailabl e Reason for Visit * Reason Comments Med Refill Encounter Details Date Type Department Care Team ([facility] st Contact Info) Description 08/31/2023 Refill [facility] MEDICINE [address] [place] [address] Caroline Flores ANP [address] [place] [address] Social History Tobacco Use Types Packs/Day Years [...]
--- OUTSIDE RECORDS SUMMARY | 2025-02-14 11:28 | XMS_ITS | Encounter Summary ---
Author Organization [employer] Address [address] [place] [address] [address]t [place] [address] Care Team Providers Care Construction Stonemason Name Role Phone Unavailable Primary Care Provider Unavailabl e Reason for Visit * Reason Comments Med Refill Encounter Details Date Type Department Care Team ([facility] st Contact Info) Description 08/16/2023 Refill [facility] MEDICINE [address] [place] [address] Caroline Flores ANP [address] [place] [address] Social History Tobacco Use Types Packs/Day Years [...]
--- OUTSIDE RECORDS SUMMARY | 2025-02-14 11:28 | XMS_ITS | Encounter Summary ---
Author Organization [employer] Address [address] [place] [address] [address]t [place] [address] Care Team Providers Care Valve Inserter Name Role Phone Unavailable Primary Care Provider Unavailabl e Reason for Visit * Reason Comments Med Refill Encounter Details Date Type Department Care Team ([facility] st Contact Info) Description 08/24/2023 Refill [facility] MEDICINE [address] [place] [address] Caroline Flores ANP [address] [place] [address] Social History Tobacco Use Types Packs/Day Years [...]
--- OUTSIDE RECORDS SUMMARY | 2025-02-14 11:28 | XMS_ITS | Encounter Summary ---
Author Organization [employer] Address [address] [place] [address] [address]t [place] [address] Care Team Providers Care Paper Coating Machine Operator Name Role Phone Unavailable Primary Care Provider Unavailabl e Reason for Visit * Reason Comments Med Refill Encounter Details Date Type Department Care Team ([facility] st Contact Info) Description 06/20/2023 Refill [facility] MEDICINE [address] [place] [address] Caroline Flores ANP [address] [place] [address] Social History Tobacco Use Types Packs/Day Years [...]
--- OUTSIDE RECORDS SUMMARY | 2025-02-14 11:28 | XMS_ITS | Clinical Summary ---
Author Organization [employer] Address [address] [place] [address] [address]t [place] [address] Care Team Providers Care Creative Art Director Name Role Phone Unavailable Primary Care Provider Unavailabl e Allergies No known active allergies Medications carvedilol (Coreg) 25 MG tablet Take 1 tablet by mouth every 12 (twelve) hours. Active glucose blood (FREESTYLE LITE) test strip 1 strip at bed time. 01/24/20 20 Active Trulicity 1.5 MG/0.5ML solution pen-injectorIndica tions:Type 2 diabetes mellitus without complication, unspecified whether automatic lathe tender insulin use ([facility]) INJECT ONE PEN (=1.5MG) SUBCUTANEOUSLY ONCE A WEEK DIRECTED 6 mL 3 12/10/19 23 Active pioglitazone (Actos) 15 MG tabletIndications: Type 2 diabetes mellitus with hyperlipidemia (CMS/HCC) ([facility]) TAKE 1 TABLET BY MOUTH EVERY MORNING 90 tablet 3 12/19/19 23 Active Aspirin Low Dose 81 MG EC tabletIndications: Type 2 diabetes mellitus with hyperlipidemia ([facility]/HCC) ([facility]) TAKE 1 TABLET BY MOUTH EVERY EVENING [...] 40 MG tabletIndications: Hypertension associated with diabetes (CMS/[facility]) Take 1 tablet (40 mg) by mouth [...] to complete this topic Insurance [place] [address]
[2025-02-14 11:35] LABS: Creatinine Urine 86.71 mg/dL
[2025-02-14 11:46] LABS: Microalbum/Creatinine Ratio Ur 932.9 ug/mg cr (<30)
[2025-02-14 11:47] LABS: Band Neutrophils Percent 0 % (3-5); Eosinophils Absolute Manual 0.1 X10*3/uL (0.0-0.4); Eosinophils Percent Manual 1 % (0-4); Lymphocytes Absolute Manual 1.4 X10*3/uL (1.2-4.9); Lymphocytes Percent Manual 26 % (20-40); Monocytes Absolute Manual 0.5 X10*3/uL (0.1-1.2); Monocytes Percent Manual 9 % (2-11); Neutrophils Absolute Manual 3.4 X10*3/uL (2.0-8.3); Neutrophils Percent Manual 64 % (45-73)
[2025-02-14 11:48] LABS: Platelet Estimate NORMAL (NORMAL); Platelet Morphology Comment NORMAL; RBC Morphology NORMAL
[2025-02-14 11:57] LABS: Alanine Aminotransferase 25 U/L (0-40); Albumin Level 4.4 g/dL (3.5-5.0); Alkaline Phosphatase 101 U/L (39-117); Anion Gap 14 (12-20); Aspartate Amino Transferase 33 U/L (5-37); Bilirubin Total 0.6 mg/dL (0.0-1.0); Blood Urea Nitrogen 12 mg/dL (9-16); Calcium 10.4 mg/dL (8.4-10.2); Carbon Dioxide 25 mmol/L (22-29); Chloride 101 mmol/L (96-108); Cholesterol 172 mg/dL (<200); Estimated Glomerular Filt Rate > 60; Glucose Fasting 145 mg/dL (60-99); HDL Cholesterol 56 mg/dL (>40); Iron 88 mcg/dL (45-160); LDL Cholesterol Calculated 97 mg/dL (<100); Percent Iron Saturation 28 % (15-50); Sodium 136 mmol/L (135-145); Total Iron Binding Capacity 317 mcg/dL (228-428); Total Protein 8.6 g/dL (6.5-8.0); Triglycerides 97 mg/dL (<150); Unsaturated Iron Binding 229 ug/dL
[2025-02-14 12:01] LABS: Vitamin D 25-OH Total 50.8 ng/mL (>30)
[2025-02-14 12:14] LABS: Folate 14.7 ng/mL (> or = 4.0); Vitamin B12 662 pg/mL (200-900)
== END 2025-02-14 09:36 | disposition home or self-care (01) ==
LOC: HO.LAB 09:35
PROVIDERS: PCP Internal Medicine; Visit Provider Internal Medicine
DX: D64.9 Anemia, unspecified (principal); E78.5 Hyperlipidemia, unspecified; R80.9 Proteinuria, unspecified; E11.9 Type 2 diabetes mellitus without complications; E55.9 Vitamin D deficiency, unspecified; E53.8 Deficiency of other specified B group vitamins
CPT/HCPCS: 36415; 80053; 80061; 82043; 82306; 82570; 82607; 82746; 83036; 83540; 85007; 85025; 85027

== ENCOUNTER 2025-06-28 10:04 | Outpatient (AMB) | payer MEDICARE, SELFPAY ==
[2025-06-28 10:11] VITALS: BP 140/80; PULSE 76; TEMP 36.3; O2SAT 95; BMI 27.6
--- NOTE | 2025-06-28 10:11 | MHC.PC.OV ---
Vital Signs 06/28/25 10:11 Height 5 ft 4 in Weight 161 lb BMI 27.6 BP 140/80 H Blood Pressure Location Lt brachial Position Sitting Pulse 76 Pulse Source Pulse Oximeter Temp 97.3 F Temp Source Temporal Artery Scan Pulse Oximetry (%) 95 Oxygen Delivery Method Room Air Intake Visit Reasons: 4 month f/u Weight Engineer Required: No Accompanied by: Self / Same As Patient Allergies No Known Allergies (No Known Allergies*) Allergy (Verified 06/28/25 10:30) Medication List - Last Reconciled 06/28/25 by Nano Last MD aspirin 81 mg PO QPM 90 days carvedilol 25 mg PO BID dulaglutide (Trulicity) 1.5 mg (0.5 mL) subcut QWEEK 90 days hydrochlorothiazide 25 mg PO QAM 90 days lisinopril 40 mg PO QAM 90 days metformin ER 500 mg PO BID 90 days uzzeykfsxgdj-hcrd-qtvcu acid 18-400 mg-mcg (Certavite-Antioxidant) 1 tab PO QAM 90 days nifedipine ER 30 mg PO QPM 90 days trazodone 50 mg PO BEDTIME 90 days vit B1 [id number] mg (B Complex w-Vit C) 1 tab PO QAM 90 days Tobacco use date assessed: 06/28/25 Fall risk assessment: No Falls in past year Last assessed Fall Risk: 06/28/25 Dental Screening Dental Screen Date: 06/28/25 Did you have a dental visit in the last 12 months?: No Did you have a dental problem in the last 6 months where you did not have access to dental care?: No Was dental information given to patient?: No HPI HPI Comments History of Present Illness Details The patient is a 74-year-old male presenting with follow-up for chronic conditions including hypertension, hyperlipidemia, and diabetes management. The patient has a history of hypertension, currently managed with carvedilol, lisinopril, hydrochlorothiazide, and nifedipine. The blood pressure management plan includes monitoring and potential adjustment of nifedipine dosage. The patient is also managing hyperlipidemia, with recent lab results showing an LDL cholesterol level of 97 mg/dL, which is above the target of 70 mg/dL. A low-dose cholesterol medication is planned to address this. The patient's diabetes is well-controlled with an A1c of 5.5%, managed with metformin and Trulicity. The blood glucose levels are reported to be well within the desired range. Microalbuminuria was noted, and the patient is under the care of a entry level assistant manager for kidney health monitoring. A referral to a entry level assistant manager will be sent for further evaluation. [facility] Medical History (Updated 06/28/25 @ 10:41 by Nano Last MD) Uncontrolled hypertension Surgical History No pertinent past surgical history Family History Father Hypertension Mother Hypertension Social History Housing: House Alcohol intake: current Alcohol intake frequency: 3 or more drinks per day Alcohol type: beer Patient Tobacco Use Status: Former Tobacco user Tobacco use type: Cigarette e-Cigarette/Vaping Use: Never Used Substance Use Type: Marijuana service: No Current occupational status: retired Cognitive needs: No Hearing needs: No Vision needs: No Questionnaire PHQ-9 Over the last 2 weeks, how often have you been bothered by any of the following problems? 1. Little interest or pleasure in doing things: not at all 2. Feeling down, depressed, or hopeless: not at all 3. Trouble falling or staying asleep, or sleeping too much: not at all 4. Feeling tired or having little energy: not at all 5. Poor appetite or overeating: not at all 6. Feeling bad about yourself - or that you are a failure or have let yourself or your family down: not at all 7. Trouble concentrating on things, such as reading the newspaper or watching television: not at all 8. Moving or speaking so slowly that other people could have noticed. Or the opposite - being so fidgety or restless that you have been moving around a lot more than usual: not at all 9. Thoughts that you would be better off or of hurting yourself in some way: not at all Total score: 0 Depression Screening Interpretation: Negative Depression Screening Done: Yes 05851 - PHQ-9 Billing: Yes Source: Developed by Drs. Corey Hdez, Domo Martin and colleagues, with an educational richard from [employer]. Thrive Questionnaire Date Thrive assessed: 10/05/24 I am a: Patient What is your living situation today?: I have a steady place to live Within the past 12 months, did the food you bought not last and you didn't have the money to get more?: Never true Within the past 12 months, did you worry whether your food would run out before you got money to buy more?: Never true Do you have trouble paying for medicines?: No Do you have trouble getting transportation to medical appointments?: No Do you have trouble paying your heating and electricity bill?: No Do you have trouble taking care of your child, family member or friend?: No Do you have trouble with day-to-day activities such as bathing, preparing meals, shopping, managing finances, etc.?: No Are you currently unemployed and looking for a job?: No Are you interested in more education?: No Please select the resources that you would like help with: None Currently or been in a relationship where the following occur: No concerns reported THRIVE Score: 0 AUDIT C Alcohol Use Questionnaire (AUDIT-C) 1. How often do you have a drink containing alcohol?: 4 or more times a week 2. How many drinks containing alcohol do you have on a typical day when you are drinking?: 3 or 4 3. How often do you have six or more drinks on one occasion?: Less than monthly Total Score: 6 LUISA-7 AMB Questionnaire LUISA-7 Date LUISA - 7 assessed: 10/05/24 Feeling nervous, anxious, or on edge: 0 = Not at all Not being able to stop or control worryin = Not at all Worrying too much about different things: 0 = Not at all Trouble relaxin = Not at all Being so restless that it is hard to sit still: 0 = Not at all Becoming easily annoyed or irritable: 0 = Not at all Feeling afraid as if something awful might happen: 0 = Not at all Total LUISA-7 score (0-4 normal; 5-9 mild; 10-14 moderate; 15-21 severe): 0 Source: Developed by Janet Cobb Kurt Kroenke and colleagues, with an educational richrad from [employer]. LUISA-7 Assessment Billing LUISA-7 Assessment Tool: LUISA-7 Assessment 50103 Review of Systems Const All systems reviewed & are unremarkable except as noted in HPI and below Card Denies chest pain at rest, Denies chest pain with activity, Denies edema, Denies irregular heart rhythm, Denies claudication, Denies dyspnea, Denies dyspnea on exertion, Denies orthopnea, Denies paroxysmal nocturnal dyspnea and Denies slow heart rate Resp Denies cough, Denies dyspnea and Denies dyspnea on exertion Physical exam (Primary Care) Vital Signs: Last Vital Signs Temp 97.3 F 06/28/25 10:11 Pulse 76 06/28/25 10:11 BP 140/80 H 06/28/25 10:11 Pulse Ox 95 06/28/25 10:11 Oxygen Delivery Method Room Air 06/28/25 10:11 BMI result Body Mass Index 27.6 Tobacco/Smoking Status: Tobacco use Status Tobacco use date assessed 06/28/25 06/28/25 10:15 Patient Tobacco Use Status Former Tobacco user 06/28/25 10:15 Tobacco use type Cigarette 06/28/25 10:15 e-Cigarette/Vaping Use Never Used 06/28/25 10:15 PHQ-9: PHQ-9 Score PHQ-9: Total score 0 06/28/25 10:34 Depression Screening Interpretation: Negative Thrive Assessment: Date of Thrive Assessment Date Thrive assessed 10/05/24 06/28/25 10:15 Currently or been in a relationship where the following occur: No concerns reported Neck Neck: Yes normal visual inspection and Yes supple Resp Effort & Inspection: normal respiratory effort Auscultation: clear to auscultation bilaterally Cardio Jugular venous distension: no JVD Rate: regular rate Rhythm: regular rhythm Heart sounds: S1 normal heart sound present and S2 normal heart sound present Extrem General: Yes full ROM Results AMB Hemoglobin A1c AMB Hemoglobin A1c 5.5 % Last Edit by Lazara Arnett CMA on 06/28/25 10:20 Results Reviewed Results Reviewed: Laboratory Last Values Hgb A1c (Clinic) 5.5 % (4.0-6.0) 06/28/25 10:15 Coding Level of Care Code Est Pt Level 4 (43551) Complex EM visit Add On G2211 Diagnoses Essential hypertension I10 Hyperlipidemia LDL goal <70 E78.5 Diabetes mellitus E11.9 Microalbuminuria R80.9 Additional Codes LUISA-7 Assessment Billing - LUISA-7 Assessment Tool: LUISA-7 Assessment 33562 ([id number]) PHQ-9 - 78644 - PHQ-9 Billing: Yes ([id number]) Time Spent (min) 24 Assessment & Plan Assessment & Plan (1) Essential hypertension: Code(s): I10 - Essential (primary) hypertension Category: Medical (2) Hyperlipidemia LDL goal <70: Code(s): E78.5 - Hyperlipidemia, unspecified Category: Medical (3) Diabetes mellitus: Code(s): E11.9 - Type 2 diabetes mellitus without complications Category: Medical (4) Microalbuminuria: Code(s): R80.9 - Proteinuria, unspecified Category: Medical Plan Plan Patient was informed and verbally consented to the use of an ambient scribe for clinic note documentation during this visit. 1. Essential Hypertension The patient's hypertension is managed with carvedilol, lisinopril, hydrochlorothiazide, and nifedipine. Blood pressure will be re-evaluated in three weeks to determine if an adjustment in nifedipine dosage is necessary. 2. Hyperlipidemia The patient's LDL cholesterol is elevated at 97 mg/dL, with a target of 70 mg/dL. A low-dose cholesterol medication will be initiated to manage this condition. 3. Type 2 Diabetes Mellitus The patient's diabetes is well-controlled with an A1c of 5.5%, managed with metformin and Trulicity. 4. Microalbuminuria Microalbuminuria is present, and the patient is under nephrology care for kidney health monitoring. A referral to a entry level assistant manager will be sent for further evaluation. Orders: Orders AMB Hemoglobin A1c Today Z13.9 - Encounter for screening, unspecified Lipid Panel 4 Months E78.5 - Hyperlipidemia, unspecified Microalbumin, Random (w Creat) 4 Months R80.9 - Proteinuria, unspecified Comprehensive [place]. Panel Fast 4 Months E11.9 - Type 2 diabetes mellitus without complications Complete Blood Count Auto Diff 4 Months D64.9 - Anemia, unspecified IRON PROFILE 4 Months D64.9 - Anemia, unspecified Referrals Nephrology Referral R80.9 - Proteinuria, unspecified Medications: New rosuvastatin 5 mg PO DAILY 90 tabs 1RF 90 days
== END 2025-06-28 10:43 | disposition home or self-care (01) ==
PROVIDERS: PCP Internal Medicine; Visit Provider Internal Medicine
DX: I10 Essential (primary) hypertension (principal); E78.5 Hyperlipidemia, unspecified; E11.9 Type 2 diabetes mellitus without complications; R80.9 Proteinuria, unspecified; Z13.9 Encounter for screening, unspecified

== ENCOUNTER → 2025-06-28 10:04 | Outpatient (BNVA) | payer MEDICARE, SELFPAY | PROVIDERS: PCP Internal Medicine; Visit Provider Internal Medicine | DX: I10 Essential (primary) hypertension (principal); E11.9 Type 2 diabetes mellitus without complications; E78.5 Hyperlipidemia, unspecified; R80.9 Proteinuria, unspecified | CPT/HCPCS: 83036; 96127; 99212 ==